=== PATIENT | female | born 1980 | race Caucasian/White ===

== ENCOUNTER 2017-08-10 00:48 | Emergency (ER) | payer OTHER ==
[~2017-08-10] VITALS: Ht 162.6 cm; Wt 60.0 kg
[2017-08-10 00:49] VITALS: BP 135/80
== END 2017-08-10 01:02 ==
LOC: ER 00:49
DX: H10.213 Acute toxic conjunctivitis, bilateral (principal)
CPT/HCPCS: 99283

== ENCOUNTER 2017-09-18 12:02 | Emergency (ER) | payer MEDICAID, OTHER ==
[~2017-09-18] VITALS: Ht 160 cm; Wt 73.6 kg
[2017-09-18 12:07] VITALS: BP 116/59
== END 2017-09-18 12:33 | disposition home or self-care (01) ==
LOC: ER 12:03 → EDBD 12:03 → ER 12:33
DX: F19.10 Other psychoactive substance abuse, uncomplicated (principal); F15.90 Other stimulant use, unspecified, uncomplicated; F11.90 Opioid use, unspecified, uncomplicated
CPT/HCPCS: 99281

== ENCOUNTER 2017-11-03 18:42 | Emergency (ER) | payer MEDICAID ==
[~2017-11-03] VITALS: Ht 162.6 cm; Wt 77.1 kg
[2017-11-03] MEDS ORDERED: dexamethasone sod phosphate 10mg/ml inj IV STA (20:13)
[2017-11-03] MEDS ORDERED: metoclopramide 5 mg/ml inj IV ONE (20:15)
[2017-11-03] MEDS ORDERED: normal saline 1000ML IV soln IVB ONE (20:15)
[2017-11-03] MEDS ORDERED: LORazepam 2 mg/ml vial IV ONE (20:15)
[2017-11-03] MEDS ORDERED: ketorolac trometh. 30mg/ml inj. IV ONE (20:15)
[2017-11-03 21:09] VITALS: BP 107/45
== END 2017-11-03 21:11 | disposition home or self-care (01) ==
LOC: ER 18:42
DX: G43.919 Migraine, unspecified, intractable, without status migrainosus (principal); F15.90 Other stimulant use, unspecified, uncomplicated; F11.90 Opioid use, unspecified, uncomplicated
CPT/HCPCS: 96374; 96375; 99284; J1100; J1885; J2060; J2765; J7030

== ENCOUNTER 2017-12-25 08:23 | Day surgery (SDC) | payer MEDICAID ==
[2017-12-17 14:19] LABS: BASOPHILS % (AUTO) 0.3 % (0-1); EOSINOPHILS # (AUTO) 0.2 X10'3 (0-0.9); EOSINOPHILS % (AUTO) 1.5 % (0-6); LYMPHOCYTES # (AUTO) 4.3 X10'3 (1.1-4.8); LYMPHOCYTES % (AUTO) 32.7 % (21-51); MEAN CORPUSCULAR HEMOGLOBIN 31.3 PG (27.0-31.0); MEAN CORPUSCULAR HGB CONC 33.7 % (33.0-36.5); MEAN CORPUSCULAR VOLUME 92.6 FL (78-98); MEAN PLATELET VOLUME 8.4 FL (7.4-10.4); MONOCYTES # (AUTO) 0.7 X10'3 (0-0.9); MONOCYTES % (AUTO) 5.6 % (2-12); NEUTROPHILS # (AUTO) 7.9 X10'3 (1.8-7.7); NEUTROPHILS % (AUTO) 59.9 % (42-75); PRE OP HEMATOCRIT 46.1 % (35.0-45.0); PRE OP HEMOGLOBIN 15.6 g/dL (12.0-16.0); PRE OP PLATELET COUNT 230 X10'3 (140-440); RED BLOOD COUNT 4.98 X10'6 (4.20-5.60); RED CELL DISTRIBUTION WIDTH 13.8 % (11.5-14.5)
[2017-12-17 14:34] LABS: ALBUMIN 3.7 G/DL (3.4-5.0); ALKALINE PHOSPHATASE 86 IU/L (46-116); BLOOD UREA NITROGEN 15 MG/DL (7-18); BUN/CREATININE RATIO 15.6 (6.6-38.0); CALCIUM 10.8 MG/DL (8.5-10.1); CHLORIDE 103 MMOL/L (99-107); CREATININE 0.96 MG/DL (0.40-0.90); PRE OP ALT 68 U/L (30-65); PRE OP ANION GAP 7 (8-16); PRE OP AST 39 U/L (10-37); PRE OP BILIRUB, TOTAL 0.4 MG/DL (0.0-1.0); PRE OP GLUCOSE 107 MG/DL (70-104); PRE OP POTASSIUM 3.8 MMOL/L (3.4-5.1); PRE OP SODIUM 138 MMOL/L (135-145); TOTAL CARBON DIOXIDE 27.6 MMOL/L (24-32); TOTAL PROTEIN 7.5 G/DL (6.4-8.2); eGFR 65 ML/MIN
[2017-12-17 14:41] LABS: HCG SERUM QL NEGATIVE
[~2017-12-25] VITALS: Ht 162.6 cm; Wt 77.7 kg
[2017-12-25] VITALS (8 sets, daily range): BP systolic 109–121; BP diastolic 63–85
[~2017-12-25 08:23] MED LIST: BUSP10TA11 PO; LIT300C PO; LURA80TA3 PO; TRAZ-219 PO; ZOLP5TAB2 PO; albuterol 2.5 MG/3 ML nebule NEB ONE; ceFAZolin/D5W- 1GM premix 50 ML IV ONE; famotidine 20mg tablet PO ONE; ringers solution, lacted 1,000 ML IV SCH
[2017-12-25] MEDS ORDERED: ringers solution, lacted 1,000 ML IV SCH (09:54)
[2017-12-25] MEDS ORDERED: meperidine/PF 25mg/ml syringe IV PRN ×3 (09:55)
[2017-12-25] MEDS ORDERED: proCHLORperazine 10 MG/2 ml inj IV PRN (09:55)
[2017-12-25] MEDS ORDERED: ondansetron/PF 4mg/2ml inj IV PRN (09:55)
[2017-12-25] MEDS ORDERED: morphine 4 MG/ML inj SYRINge IV PRN ×2 (09:55)
[2017-12-25] MEDS ORDERED: BUPIVAcaine/PF 2.5mg/ml (0.25%) 10ml vial ONE (11:02)
[2017-12-25] MEDS ORDERED: fentaNYL/PF 50MCG/1 ML 2ML syringe ONE (11:20)
[2017-12-25] MEDS ORDERED: sevoflurane 250ml liquid IH ONE (11:21)
[2017-12-25] MEDS ORDERED: midazolam 2 mg/2 ml injection ONE (11:21)
[2017-12-25] MEDS ORDERED: propofol inj 20 ML IV ONE (11:21)
== END 2017-12-25 13:05 | disposition home or self-care (01) ==
LOC: PAS 08:23
PROVIDERS: ATTEND Orthopaedic Surgery Hand Surgery
DX: G56.01 Carpal tunnel syndrome, right upper limb (principal); M67.432 Ganglion, left wrist; F17.210 Nicotine dependence, cigarettes, uncomplicated; J45.998 Other asthma; F32.89 Other specified depressive episodes; F41.8 Other specified anxiety disorders; G43.909 Migraine, unspecified, not intractable, without status migrainosus; B18.2 Chronic viral hepatitis C; F19.21 Other psychoactive substance dependence, in remission; Z88.6 Allergy status to analgesic agent; Z98.51 Tubal ligation status; Z79.891 Long term (current) use of opiate analgesic; Z79.899 Other long term (current) drug therapy; Z98.890 Other specified postprocedural states
CPT/HCPCS: 25111; 29848; 36415; 80053; 84703; 85025; A6449; J0690; J2250; J2704; J3010; J3490; J7120; A7000

== ENCOUNTER 2018-03-22 10:30 | Emergency (ER) | payer MEDICAID ==
[~2018-03-22] VITALS: Ht 160 cm; Wt 81.2 kg
[~2018-03-22 10:30] MED LIST changes: -albuterol 2.5 MG/3 ML nebule NEB ONE; -ceFAZolin/D5W- 1GM premix 50 ML IV ONE; -famotidine 20mg tablet PO ONE; -ringers solution, lacted 1,000 ML IV SCH
[2018-03-22] MEDS ORDERED: ketorolac trometh inj. 60 MG/2 ML VIAL IM ONE (10:50)
[2018-03-22] MEDS ORDERED: cyclobenzaprine 10mg tablet PO ONE (11:35)
[2018-03-22] MEDS ORDERED: HYDROcodone/acetaminophen 5mg/325mg tablet PO ONE (11:35)
[2018-03-22] MEDS ORDERED: CYCL-1 PO (11:36)
[2018-03-22] MEDS ORDERED: IBUP-1984 PO (11:36)
[2018-03-22 11:59] VITALS: BP 106/64
== END 2018-03-22 12:01 | disposition home or self-care (01) ==
LOC: ER 10:30
DX: G89.29 Other chronic pain (principal); M54.5 Low back pain; M54.6 Pain in thoracic spine; M62.830 Muscle spasm of back; F17.200 Nicotine dependence, unspecified, uncomplicated; F15.90 Other stimulant use, unspecified, uncomplicated; F11.90 Opioid use, unspecified, uncomplicated; Z79.899 Other long term (current) drug therapy; Z88.8 Allergy status to other drugs, medicaments and biological substances
CPT/HCPCS: 72074; 96372; 99283; J1885

== ENCOUNTER 2018-07-12 18:07 | Emergency (ER) | payer MEDICAID, OTHER ==
[~2018-07-12] VITALS: Ht 160 cm; Wt 85.4 kg
[~2018-07-12 18:07] MED LIST changes: +CYCL-1 PO
[2018-07-12] MEDS ORDERED: HYDR-3965 PO (18:44)
[2018-07-12] MEDS ORDERED: CYCL-1 PO (18:44)
[2018-07-12] MEDS ORDERED: ketorolac trometh inj. 60 MG/2 ML VIAL IM ONE (18:45)
[2018-07-12] MEDS ORDERED: acetaminophen 325mg tablet PO ONE (18:45)
[2018-07-12 18:47] VITALS: BP 127/76
== END 2018-07-12 19:01 | disposition home or self-care (01) ==
LOC: ER 18:08
DX: M54.5 Low back pain (principal); G89.29 Other chronic pain; F15.90 Other stimulant use, unspecified, uncomplicated; F11.90 Opioid use, unspecified, uncomplicated; Z88.8 Allergy status to other drugs, medicaments and biological substances; Z79.899 Other long term (current) drug therapy
CPT/HCPCS: 96372; 99283; J1885

== ENCOUNTER 2018-07-20 16:57 | Emergency (ER) | payer MEDICAID ==
[~2018-07-20] VITALS: Ht 162.6 cm; Wt 85.0 kg
[~2018-07-20 16:57] MED LIST changes: +HYDR-3965 PO
[2018-07-20 17:13] VITALS: BP 122/68
== END 2018-07-20 20:23 | disposition left against medical advice (07) ==
LOC: ER 16:58
DX: M25.512 Pain in left shoulder (principal); M54.2 Cervicalgia; Z53.21 Procedure and treatment not carried out due to patient leaving prior to being seen by health care provider; V89.2XXA Person injured in unspecified motor-vehicle accident, traffic, initial encounter; Y93.89 Activity, other specified; Y92.89 Other specified places as the place of occurrence of the external cause; Y99.8 Other external cause status

== ENCOUNTER 2019-07-23 17:37 | Emergency (ER) | payer MEDICAID ==
[~2019-07-23] VITALS: Ht 162.6 cm; Wt 81.7 kg
[~2019-07-23 17:37] MED LIST changes: -HYDR-3965 PO; -TRAZ-219 PO; +TRAZ-256 PO
[2019-07-23 17:38] VITALS: BP 110/60
[2019-07-23] MEDS ORDERED: ketorolac tromethamine 15mg/ml inj. IM ONE (18:40)
[2019-07-23] MEDS ORDERED: orphenadrine citrate 60mg/2ml inj. IM ONE (18:40)
[2019-07-23] MEDS ORDERED: IBUP-1984 PO (18:49)
[2019-07-23] MEDS ORDERED: ORPH100T2 PO (18:49)
== END 2019-07-23 19:00 | disposition home or self-care (01) ==
LOC: ER 17:38
DX: M54.5 Low back pain (principal); G89.29 Other chronic pain; F15.90 Other stimulant use, unspecified, uncomplicated; F11.90 Opioid use, unspecified, uncomplicated; Z72.89 Other problems related to lifestyle; Z88.8 Allergy status to other drugs, medicaments and biological substances; Z79.899 Other long term (current) drug therapy
CPT/HCPCS: 96372; 99283; J1885

== ENCOUNTER 2022-03-19 01:45 | Emergency (ER) | payer MEDICAID ==
[~2022-03-19] VITALS: Ht 160 cm; Wt 90.0 kg
[~2022-03-19 01:45] MED LIST changes: +LURA80TA2 PO; -LURA80TA3 PO; +ORPH100T2 PO
[2022-03-19 02:04] VITALS: BP 138/87
[2022-03-19] MEDS ORDERED: acetaminophen 325mg tablet PO ONE (04:30)
[2022-03-19] MEDS ORDERED: ibuprofen tablet 400 MG TABLET PO ONE (04:30)
[2022-03-19 04:52] LABS: COLOR,URINE STRAW (Yellow); GLUCOSE, URINE NEGATIVE (Neg); KETONES,URINE NEGATIVE (Neg); LEUKOCYTE ESTERASE ,URINE NEGATIVE (Neg); NITRITES, URINE NEGATIVE (Neg); OCCULT BLOOD,URINE SMALL (Neg); PH,URINE 5.5 (4.8-8.0); PROTEIN,URINE NEGATIVE (Neg); UROBILINOGEN,URINE 0.2 E.U/dL (0.2-1.0)
[2022-03-19 04:56] LABS: CLARITY,URINE SLIGHTLY CLOUDY (Clear); UA COLLECTION TYPE CLN CATCH MIDSTREAM
[2022-03-19 04:58] LABS: BACTERIA,URINE 1+ /HPF (Neg); SQUAMOUS EPITHELIAL CELL,UR MANY /LPF (FEW)
[2022-03-19 04:59] LABS: RBC,URINE 0-2 /HPF (0-2); TRANSITIONAL EPI CELLS,URINE FEW /HPF; WBC,URINE 0-4 /HPF (0-4)
--- NOTE | 2022-03-19 05:03 | NUR ---
BLADDER SCANNED PATIENT 127 mL REVEALED IN BLADDER MD AND PRIMARY RN AWARE
[2022-03-19 05:09] LABS: URINE AMPHETAMINE SCREEN NEGATIVE (Neg); URINE BARBITUATE SCREEN NEGATIVE (Neg); URINE BENZODIAZEPINES SCREEN NEGATIVE (Neg); URINE CANNABINOID SCREEN NEGATIVE (Neg); URINE COCAINE SCREEN NEGATIVE (Neg); URINE METHADONE SCREEN NEGATIVE (Neg); URINE OPIATE SCREEN POSITIVE (Neg); URINE PHENCYCLIDINE SCREEN NEGATIVE (Neg)
[2022-03-19] MEDS ORDERED: bethanechol 10mg tablet PO ONE (05:30)
[2022-03-19] MEDS ORDERED: BETH10TA29 PO (05:31)
== END 2022-03-19 05:51 | disposition home or self-care (01) ==
LOC: ER 01:46
DX: R30.0 Dysuria (principal); R10.9 Unspecified abdominal pain; R11.0 Nausea; G89.29 Other chronic pain; F15.90 Other stimulant use, unspecified, uncomplicated; F11.90 Opioid use, unspecified, uncomplicated
CPT/HCPCS: 80305; 81001; 99284

== ENCOUNTER 2022-09-16 10:49 | Emergency (ER) | payer MEDICAID ==
[~2022-09-16] VITALS: Ht 160 cm; Wt 88.2 kg
[~2022-09-16 10:49] MED LIST changes: -ORPH100T2 PO; +ORPH100T4 PO
[2022-09-16 11:54] LABS: BASOPHILS % (AUTO) 0.2 % (0-1); EOSINOPHILS % (AUTO) 0.2 % (0-6); HEMATOCRIT 36.6 % (35.0-45.0); HEMOGLOBIN 11.3 g/dl (12.0-16.0); LYMPHOCYTES # (AUTO) 1.4 X10'3 (1.1-4.8); LYMPHOCYTES % (AUTO) 12.7 % (21-51); MEAN CORPUSCULAR HEMOGLOBIN 23.2 PG (27.0-31.0); MEAN CORPUSCULAR HGB CONC 30.9 g/dL (33.0-36.5); MEAN CORPUSCULAR VOLUME 74.9 FL (78-98); MONOCYTES # (AUTO) 0.5 X10'3 (0-0.9); MONOCYTES % (AUTO) 4.1 % (2-12); NEUTROPHILS # (AUTO) 9.4 X10'3 (1.8-7.7); NEUTROPHILS % (AUTO) 82.8 % (42-75); PLATELET COUNT 251 X10'3 (140-440); RED BLOOD COUNT 4.89 X10'6 (4.20-5.60); RED CELL DISTRIBUTION WIDTH 17.5 % (11.5-14.5); WHITE BLOOD COUNT 11.3 X10'3 (4.5-11.0)
[2022-09-16 11:55] LABS: URINE HCG NEGATIVE (NEG)
[2022-09-16 12:03] LABS: CLARITY,URINE SLIGHTLY CLOUDY (Clear); COLOR,URINE YELLOW (Yellow); GLUCOSE, URINE NEGATIVE (Neg); KETONES,URINE NEGATIVE (Neg); LEUKOCYTE ESTERASE ,URINE NEGATIVE (Neg); NITRITES, URINE NEGATIVE (Neg); OCCULT BLOOD,URINE MODERATE (Neg); PROTEIN,URINE NEGATIVE (Neg); UROBILINOGEN,URINE 0.2 E.U/dL (0.2-1.0)
[2022-09-16 12:06] LABS: ALANINE AMINOTRANSFERASE 26 U/L (12-78); ALBUMIN 3.8 G/DL (3.4-5.0); ALKALINE PHOSPHATASE 66 IU/L (46-116); ANION GAP 8 (8-16); ASPARTATE AMINO TRANSFERASE 15 U/L (10-37); BILIRUBIN,TOTAL 0.2 MG/DL (0.1-1.0); BLOOD UREA NITROGEN 25 MG/DL (7-18); BUN/CREATININE RATIO 27.8 (10.0-20.0); CHLORIDE 107 MMOL/L (99-107); GLUCOSE 121 MG/DL (70-104); LIPASE 55 U/L (73-393); POTASSIUM 4.1 MMOL/L (3.5-5.1); SODIUM 139 MMOL/L (135-145); TOTAL PROTEIN 7.7 G/DL (6.4-8.2); eGFR 69 ML/MIN
[2022-09-16 12:14] LABS: CALCIUM 10.9 MG/DL (8.5-10.1)
[2022-09-16 12:24] LABS: UA COLLECTION TYPE CLN CATCH MIDSTREAM
[2022-09-16 12:25] LABS: MUCUS STRANDS MODERATE /LPF (Neg); SQUAMOUS EPITHELIAL CELL,UR MODERATE /LPF (FEW)
[2022-09-16 12:26] LABS: BACTERIA,URINE FEW /HPF (Neg); RBC,URINE 50-100 /HPF (0-2); WBC,URINE 0-4 /HPF (0-4)
[2022-09-16 12:52] VITALS: BP 129/64; PULSE 85; O2SAT 100
[2022-09-16] MEDS ORDERED: HYDROcodone/acetaminophen 10/325mg tab PO ONE (15:20)
[2022-09-16] MEDS ORDERED: proCHLORperazine 10mg tablet PO ONE (15:20)
[2022-09-16 16:00] VITALS: RESP 18
[2022-09-16] MEDS ORDERED: ONDA4TAB12 PO (16:26)
[2022-09-16] MEDS ORDERED: FLO0.4C PO (16:26)
[2022-09-16] MEDS ORDERED: OXYC-658 PO (16:26)
== END 2022-09-16 16:38 | disposition home or self-care (01) ==
LOC: ER 10:49
DX: N20.0 Calculus of kidney (principal); G89.29 Other chronic pain; M54.9 Dorsalgia, unspecified; F15.10 Other stimulant abuse, uncomplicated; Z79.899 Other long term (current) drug therapy
CPT/HCPCS: 36415; 74176; 80053; 81001; 81025; 83690; 85025; 99284; Q0164

== ENCOUNTER 2023-08-22 15:55 | Emergency (ER) | payer MEDICAID ==
[~2023-08-22] VITALS: Ht 161.3 cm; Wt 80.9 kg
[~2023-08-22 15:55] MED LIST changes: +ONDA-243 PO
[2023-08-22 16:09] VITALS: BP 105/62; PULSE 88; RESP 16; TEMP 97.9; O2SAT 97
[2023-08-22 16:11] LABS: BASOPHILS % (AUTO) 0.3 % (0-1); EOSINOPHILS % (AUTO) 0.1 % (0-6); HEMATOCRIT 45.5 % (35.0-45.0); LYMPHOCYTES # (AUTO) 6.1 X10'3 (1.1-4.8); LYMPHOCYTES % (AUTO) 46.2 % (21-51); MEAN CORPUSCULAR HEMOGLOBIN 29.1 PG (27.0-31.0); MEAN CORPUSCULAR HGB CONC 32.9 g/dL (33.0-36.5); MEAN CORPUSCULAR VOLUME 88.2 FL (78-98); MEAN PLATELET VOLUME 8.5 FL (7.4-10.4); MONOCYTES # (AUTO) 0.9 X10'3 (0-0.9); MONOCYTES % (AUTO) 6.5 % (2-12); NEUTROPHILS # (AUTO) 6.2 X10'3 (1.8-7.7); NEUTROPHILS % (AUTO) 46.9 % (42-75); PLATELET COUNT 234 X10'3 (140-440); RED BLOOD COUNT 5.15 X10'6 (4.20-5.60); WHITE BLOOD COUNT 13.2 X10'3 (4.5-11.0)
[2023-08-22 16:23] LABS: ALANINE AMINOTRANSFERASE 26 U/L (12-78); ALBUMIN 3.9 G/DL (3.4-5.0); ALBUMIN/GLOBULIN RATIO 1.1 (1.1-1.5); ALKALINE PHOSPHATASE 48 IU/L (46-116); ANION GAP 10 (8-16); ASPARTATE AMINO TRANSFERASE 9 U/L (10-37); BILIRUBIN,TOTAL 0.8 MG/DL (0.1-1.0); BLOOD UREA NITROGEN 25 MG/DL (7-18); BUN/CREATININE RATIO 26.6 (10.0-20.0); CALCIUM 10.9 MG/DL (8.5-10.1); CHLORIDE 105 MMOL/L (99-107); CREATININE 0.94 MG/DL (0.40-0.90); GLUCOSE 104 MG/DL (70-104); POTASSIUM 3.2 MMOL/L (3.5-5.1); SODIUM 140 MMOL/L (135-145); TOTAL PROTEIN 7.6 G/DL (6.4-8.2); eCRCL 65 ML/MIN; eGFR 65 ML/MIN
[2023-08-22 16:31] LABS: PRO BRAIN NATRIURETIC PEPTIDE 102 PG/ML (0-125); TOTAL CELLS COUNTED 100
[2023-08-22 16:32] LABS: PLATELET ESTIMATE NORMAL
== END 2023-08-22 17:57 | disposition left against medical advice (07) ==
LOC: ER 15:56
DX: R06.02 Shortness of breath (principal); R07.89 Other chest pain; Z53.21 Procedure and treatment not carried out due to patient leaving prior to being seen by health care provider
CPT/HCPCS: 36415; 71045; 80053; 83880; 84484; 85007; 85025; 93005